=== PATIENT | female | born 1955 | race Caucasian/White ===

== ENCOUNTER → 2018-07-09 10:30 | Outpatient (CLI) | payer MEDICARE, SELFPAY ==
[2018-07-09 11:21] LABS: Alanine Aminotransferase 21 IU/L (9-52); Albumin 4.4 g/dL (3.5-5.0); Albumin Globulin Ratio 1.3 (1.0-2.8); Alkaline Phosphatase 74 U/L (38-126); Aspartate Aminotransferase 19 IU/L (14-36); BUN Creatinine Ratio 27.8 (6-22); Bilirubin Total 0.7 mg/dL (0.2-1.3); Blood Urea Nitrogen 25 mg/dL (7-17); Calcium 9.3 mg/dL (8.4-10.2); Carbon Dioxide 26 mmol/L (22-32); Chloride 102 mmol/L (98-107); Cholesterol 234 mg/dL (140-199); Estimated Glomerular Filt Rate > 60.0 mL/min (>60); Globulin 3.3 g/dL (1.7-4.1); Glucose 111 mg/dL (80-110); HDL Cholesterol 84 mg/dL (40-60); HEMOLYSIS < 15 (0-50); LDL Cholesterol Calculated 135 mg/dL (<100); Potassium 4.4 mmol/L (3.4-5.1); Sodium 138 mmol/L (137-145); Total Protein 7.7 g/dL (6.3-8.2); Triglycerides 76 mg/dL (35-150)
[2018-07-09 11:30] LABS: Creatinine Urine Random 186.1 mg/dL
[2018-07-09 12:32] LABS: Microalbumi Creatinin Ratio Ur 3.7 ug/mg CR (<30); Microalbumin Urine Random 0.7 mg/dL (0-1.6)
== END ==
PROVIDERS: Family Provider Physician Assistant; PCP Physician Assistant; Visit Provider Physician Assistant
DX: E66.01 Morbid (severe) obesity due to excess calories (principal); Z13.220 Encounter for screening for lipoid disorders; Z13.6 Encounter for screening for cardiovascular disorders; I10 Essential (primary) hypertension
CPT/HCPCS: 36415; 80053; 80061; 82043; 82570

== ENCOUNTER → 2019-07-20 08:43 | Outpatient (CLI) | payer MEDICARE, SELFPAY ==
--- NOTE | 2019-07-20 08:44 | DI.US.S_ITS ---
LIMITED ULTRASOUND OF RIGHT BREAST: 07/20/2019 CLINICAL: Right breast palpable lumps. Patient reports prior skin bruising of the superior lateral right breast at the site of palpable concern which has since resolved and can no longer be identified by the patient at the time of this current exam. Patient denies any breast pain, nipple discharge, or history of recent trauma. Comparison is made to exams dated: 07/20/2019 mammogram, 06/09/2012 mammogram, 12/18/2010 mammogram, 12/14/2009 mammogram, and 10/04/2008 mammogram - [facility]. Color flow ultrasound of the right breast 8-12 o'clock region was performed. Madrigal scale images of the real-time examination were reviewed. Targeted ultrasound was performed in the region of the patient's reported focal painful palpable area of concern of the superior lateral right breast. There are areas of irregular indistinct heterogenous hyperechoic tissue within the superior lateral right breast just beneath the skin surface measuring 1.3 x 0.9 x 0.6 cm in the right breast at 12:00 position 3 cm from the nipple and 2.0 x 1.6 x 0.7 cm in the right breast at 9:00 position 3 cm from the nipple. These areas demonstrate minimal internal vascularity on Doppler ultrasound. There is also a 0.5 cm oval circumscribed cystic component with internal echogenic debris within the hyperechoic tissue of the right breast at 9:00 position. Targeted ultrasound was performed in the region of the patient's reported second focal painful palpable area of concern of the inferior lateral right breast near 8:00 position 3 cm from the nipple. No underlying breast mass or abnormality is identified. Targeted ultrasound was performed in the region of the irregular focal asymmetry of the superior medial right breast (1-2 o'clock positions) identified on diagnostic mammography performed immediately prior to this exam on 07/20/19. No underlying correlating breast mass or abnormality is identified. IMPRESSION: PROBABLY BENIGN 1) Areas of irregular indistinct heterogenous hyperechoic tissue within the superior lateral right breast just beneath the skin surface at the sites of patient's palpable concern are most consistent with areas of focal fat edema. The internal complicated cystic component may represent a complicated cyst or resolving hematoma component. A follow-up diagnostic mammogram and targeted ultrasound in 6 months is recommended to demonstrate stability/resolution. The patient is advised to monitor her breasts and to return sooner for re-evaluation should she feel anything grow or change. 2) No ultrasound correlate for the irregular asymmetry of the superior medial right breast identified on diagnostic mammography. This likely represents superimposed fibroglandular tissues and is probable benign. A follow-up diagnostic mammogram in 6 months is recommended to demonstrate stability/resolution. The patient is advised to monitor her breasts and to return sooner for re-evaluation should she feel anything grow or change. This exam was interpreted at Station ID: [id number]. Electronically Signed By: Brent Emanuel M.D. ecl/:07/20/2019 10:48:56 letter sent: Followup Recommended Ultrasound BI-RADS: 3 Probably benign
--- NOTE | 2019-07-20 08:44 | DI.MG.S_ITS ---
BILATERAL DIGITAL DIAGNOSTIC MAMMOGRAM 3D/2D: 07/20/2019 CLINICAL: Right breast palpable lumps. Patient reports prior skin bruising of the superior lateral right breast at the sites of palpable concern which has since resolved and can no longer be identified by the patient at the time of this current exam. Patient denies any breast pain, nipple discharge, or history of recent trauma. Comparison is made to exams dated: 06/09/2012 mammogram, 12/18/2010 mammogram, and 12/14/2009 mammogram - [facility]. There are scattered fibroglandular elements in both breasts. There is a triangular marker overlying the skin of the superior lateral right breast at anterior depth at the site of the patient's reported palpable abnormality. There is an irregular focal asymmetry underlying the triangular marker. Patient also describes a second area of palpable concern in the right breast near 8:00 position 3 cm from the nipple. No mammographic correlate is identified. There is an irregular focal asymmetry of the superior medial right breast at anterior to middle depth. There are multiple oval circumscribed subcentimeter masses within the breasts bilaterally that are of similar morphology and appear stable to prior comparison exams, consistent with benignity and likely representing intramammary cysts and lymph nodes. No other significant masses, calcifications, or other findings are seen in either breast. IMPRESSION: INCOMPLETE: NEEDS ADDITIONAL IMAGING EVALUATION 1) There is a triangular marker overlying the skin of the superior lateral right breast at anterior depth at the site of the patient's reported palpable abnormality. There is an irregular focal asymmetry underlying the triangular marker. Targeted diagnostic ultrasound recommended for further evaluation, which will be performed immediately following this exam. 2) There is an irregular focal asymmetry of the superior medial right breast at anterior to middle depth. Targeted diagnostic ultrasound recommended for further evaluation, which will be performed immediately following this exam. 3) Patient also describes a second area of palpable concern in the right breast near 8:00 position 3 cm from the nipple. No mammographic correlate is identified. Targeted diagnostic ultrasound recommended for further evaluation, which will be performed immediately following this exam. This exam was interpreted at Station ID: [id number]. NOTE: For mammograms, a report in lay terms will be sent to the patient. Approximately 15% of breast malignancies will not be visualized mammographically. In the management of a palpable breast mass, a negative mammogram must not discourage biopsy of a clinically suspicious lesion. Electronically Signed By: Brent Emanuel M.D. ecl/:07/20/2019 10:42:07 ACR BI-RADS Category 0: Incomplete 3340F
== END ==
PROVIDERS: PCP Physician Assistant; Visit Provider Physician Assistant
DX: R92.8 Other abnormal and inconclusive findings on diagnostic imaging of breast (principal); N64.89 Other specified disorders of breast
CPT/HCPCS: 76642; 77066; G0279

== ENCOUNTER → 2020-03-16 10:42 | Outpatient (CLI) | payer MEDICARE, SELFPAY ==
--- NOTE | 2020-03-16 10:44 | DI.RAD.S_ITS ---
PROCEDURE: XR KNEE STANDING BI INDICATIONS: right knee pain with concern for OA TECHNIQUE: Frontal views of the bilateral knees. COMPARISON: None. FINDINGS: Bones: No acute fractures or dislocations. There is moderate osteoarthritis at the medial and lateral compartments on the left, and at the lateral compartment on the right. Moderately severe degeneration is seen at the medial compartment on the right. No suspicious bony lesions. Joint spaces appear normal with weightbearing. Soft tissues: There is a lateral 1.5 cm calcification within the soft tissues superior to the patella lateral border. Position and etiology is uncertain but it is possibly a large intra-articular loose body.. IMPRESSION: Asymmetric right greater than left knee joint osteoarthritis as discussed, possible 1.5 cm intra-articular loose body above the lateral border of the patella on the frontal view. Dictated by: David Ruth M.D. on 03/16/2020 at 12:36 Approved by: David Ruth M.D. on 03/16/2020 at 12:39
== END ==
PROVIDERS: Referring Provider Family Medicine; Visit Provider Family Medicine
DX: M17.0 Bilateral primary osteoarthritis of knee (principal)
CPT/HCPCS: 73565

== ENCOUNTER → 2020-06-27 08:53 | Outpatient (CLI) | payer MEDICARE, SELFPAY ==
[2020-06-27 09:54] LABS: Hematocrit 37.9 % (36-46); Hemoglobin 12.6 g/dL (12.0-16.0); Mean Corpuscular HGB Conc 33.2 % (30-36); Mean Corpuscular Hemoglobin 31.2 PG (26-34); Mean Corpuscular Volume 94.2 fL (80-100); Platelet Count 270 X10^3/uL (150-400); Red Blood Cell Count 4.02 X10^6/uL (4.0-5.2); Red Cell Distribution Width 13.3 % (11.6-14.8); White Blood Cell Count 5.7 X10^3/uL (4.5-11.0)
[2020-06-27 10:04] LABS: Hemoglobin A1C% w Est Avg Glu 5.3 % (4.0-6.0)
[2020-06-27 10:11] LABS: Alanine Aminotransferase 21 IU/L (<35); Albumin 3.9 g/dL (3.5-5.0); Albumin Globulin Ratio 1.2 (1.0-2.8); Alkaline Phosphatase 65 U/L (38-126); Aspartate Aminotransferase 24 IU/L (14-36); BUN Creatinine Ratio 24.2 (6-22); Bilirubin Total 0.6 mg/dL (0.2-1.3); Blood Urea Nitrogen 23 mg/dL (7-17); Calcium 9.2 mg/dL (8.4-10.2); Carbon Dioxide 28 mmol/L (22-32); Chloride 105 mmol/L (98-107); Cholesterol 223 mg/dL (140-199); Estimated Glomerular Filt Rate 58.7 mL/min (>60); Globulin 3.3 g/dL (1.7-4.1); Glucose 84 mg/dL (80-110); HDL Cholesterol 70 mg/dL (40-60); HEMOLYSIS < 15 (0-50); LDL Cholesterol Calculated 137 mg/dL (<100); Potassium 3.7 mmol/L (3.4-5.1); Sodium 136 mmol/L (137-145); Total Protein 7.2 g/dL (6.3-8.2); Triglycerides 82 mg/dL (35-150)
[2020-06-27 10:41] LABS: TSH w/ Reflex to FT4 1.08 uIU/mL (0.47-4.68)
== END ==
PROVIDERS: PCP Registered Nurse Diabetes Educator; Referring Provider Registered Nurse Diabetes Educator; Visit Provider Registered Nurse Diabetes Educator
DX: E66.01 Morbid (severe) obesity due to excess calories (principal); R73.01 Impaired fasting glucose; I10 Essential (primary) hypertension; M17.11 Unilateral primary osteoarthritis, right knee; Z68.42 Body mass index [BMI] 45.0-49.9, adult
CPT/HCPCS: 36415; 80053; 80061; 83036; 84443; 85027

== ENCOUNTER → 2020-07-11 14:39 | Outpatient (CLI) | payer MEDICARE, SELFPAY ==
--- NOTE | 2020-07-11 14:40 | DI.MG.S_ITS ---
BILATERAL DIGITAL DIAGNOSTIC MAMMOGRAM 3D/2D: 07/11/2020 CLINICAL: Late Short term follow up of the right breast, due for bilateral imaging. Comparison is made to exams dated: 07/20/2019 mammogram, 06/09/2012 mammogram, and 07/20/2019 [facility]. There are scattered fibroglandular elements in both breasts. The irregular focal asymmetry in the right breast upper outer aspect anterior depth is no longer seen. The irregular focal asymmetry in the right breast upper inner aspect middle depth is no longer seen. No other significant masses, calcifications, or other findings are seen in either breast. IMPRESSION: INCOMPLETE: NEEDS ADDITIONAL IMAGING EVALUATION An ultrasound is recommended to confirm the no longer seen irregular focal asymmetry in the right breast upper outer aspect anterior depth. This exam was interpreted at Station ID: [id number]. NOTE: For mammograms, a report in lay terms will be sent to the patient. Approximately 15% of breast malignancies will not be visualized mammographically. In the management of a palpable breast mass, a negative mammogram must not discourage biopsy of a clinically suspicious lesion. SUMMARY: Targeted ultrasound is recommended for further evaluation and will be scheduled immediately following this exam. Electronically Signed By: Julian gonsales/bri:07/11/2020 16:39:15 ACR BI-RADS Category 0: Incomplete 3340F
--- NOTE | 2020-07-11 14:40 | DI.US.S_ITS ---
LIMITED ULTRASOUND OF RIGHT BREAST AND AXILLA: 07/11/2020 CLINICAL: Patient returns today to evaluate a focal asymmetry in the right breast. Comparison is made to exams dated: 07/11/2020 mammogram, 07/20/2019 ultrasound, 07/20/2019 mammogram, and 06/09/2012 mammogram - [facility]. Ultrasound of the right breast 9 o'clock, 12 o'clock, and axilla regions was performed. No significant abnormalities were seen sonographically in the right breast. The previously seen irregular indistict heterogeneous hyperechoic tissue in the subcutaneous tissues of the right breast superior lateral quadrant anterior depth are no longer seen, most likely secondary to resolved edema and/or resolved hematomas. IMPRESSION: NEGATIVE There is no sonographic evidence of malignancy. A 1 year screening mammogram is recommended. This exam was interpreted at Station ID: [id number]. Electronically Signed By: Julian gonsales/bri:07/11/2020 16:43:25 letter sent: Normal Exam Ultrasound BI-RADS: 1 Negative
== END ==
PROVIDERS: PCP Registered Nurse Diabetes Educator; Referring Provider Registered Nurse Diabetes Educator; Visit Provider Registered Nurse Diabetes Educator
DX: R92.8 Other abnormal and inconclusive findings on diagnostic imaging of breast (principal); N64.89 Other specified disorders of breast
CPT/HCPCS: 76642; 77066; G0279

== ENCOUNTER → 2021-07-11 09:02 | Outpatient (CLI) | payer MEDICARE, SELFPAY ==
[2021-07-11 10:38] LABS: Hematocrit 37.7 % (36-46); Hemoglobin 12.8 g/dL (12.0-16.0); Mean Corpuscular HGB Conc 34.1 % (30-36); Mean Corpuscular Hemoglobin 31.5 PG (26-34); Mean Corpuscular Volume 92.5 fL (80-100); Platelet Count 306 X10^3/uL (150-400); Red Blood Cell Count 4.07 X10^6/uL (4.0-5.2); Red Cell Distribution Width 12.7 % (11.6-14.8); White Blood Cell Count 5.7 X10^3/uL (4.5-11.0)
[2021-07-11 10:58] LABS: Alanine Aminotransferase 18 IU/L (<35); Albumin 4.1 g/dL (3.5-5.0); Albumin Globulin Ratio 1.4 (1.0-2.8); Alkaline Phosphatase 57 U/L (38-126); Aspartate Aminotransferase 22 IU/L (14-36); BUN Creatinine Ratio 29.9 (6-22); Bilirubin Total 0.6 mg/dL (0.2-1.3); Blood Urea Nitrogen 29 mg/dL (7-17); Calcium 9.6 mg/dL (8.4-10.2); Carbon Dioxide 26 mmol/L (22-32); Chloride 106 mmol/L (98-107); Cholesterol 224 mg/dL (140-199); Estimated Glomerular Filt Rate 57.1 mL/min (>60); Globulin 2.9 g/dL (1.7-4.1); Glucose 97 mg/dL (80-110); HDL Cholesterol 85 mg/dL (40-60); HEMOLYSIS < 15 (0-50); LDL Cholesterol Calculated 123 mg/dL (<100); Potassium 4.1 mmol/L (3.4-5.1); Sodium 137 mmol/L (137-145); Triglycerides 82 mg/dL (35-150)
[2021-07-11 11:30] LABS: TSH w/ Reflex to FT4 0.71 uIU/mL (0.47-4.68)
== END ==
PROVIDERS: PCP Registered Nurse Diabetes Educator; Referring Provider Registered Nurse Diabetes Educator; Visit Provider Registered Nurse Diabetes Educator
DX: R73.01 Impaired fasting glucose (principal); I10 Essential (primary) hypertension; E78.00 Pure hypercholesterolemia, unspecified; R94.4 Abnormal results of kidney function studies
CPT/HCPCS: 36415; 80053; 80061; 84443; 85027

== ENCOUNTER → 2022-06-19 12:28 | Outpatient (CLI) | payer MEDICARE, SELFPAY ==
--- NOTE | 2022-06-19 12:30 | DI.MG.S_ITS ---
BILATERAL DIGITAL SCREENING MAMMOGRAM 3D/2D WITH CAD: 06/19/2022 CLINICAL: Routine screening. Comparison is made to exams dated: 07/11/2020 mammogram, 07/20/2019 mammogram, and 06/09/2012 mammogram - [facility]. There are scattered areas of fibroglandular density in both breasts (category b / 25%-50% glandular tissue). Current study was also evaluated with a Computer Aided Detection (CAD) system. No significant masses, calcifications, or other findings are seen in either breast. There has been no significant interval change. IMPRESSION: NEGATIVE There is no mammographic evidence of malignancy. A 1 year screening mammogram is recommended. Based on the Tyrer Cuzick model (a risk assessment model) the patient's lifetime risk is 5.2% and her 10 year risk is 3.0%. According to the ACR, ACS, and NCCN guidelines, an annual breast MRI exam along with mammogram is recommended if the patient's lifetime risk is 20% or greater. This exam was interpreted at Station ID: [id number]. NOTE: For mammograms, a report in lay terms will be sent to the patient. Approximately 15% of breast malignancies will not be visualized mammographically. In the management of a palpable breast mass, a negative mammogram must not discourage biopsy of a clinically suspicious lesion. Electronically Signed By: García mathew/bri:06/19/2022 13:02:36 letter sent: Normal Exam ACR BI-RADS Category 1: Negative 3341F
== END ==
PROVIDERS: PCP Registered Nurse Diabetes Educator; Referring Provider Registered Nurse Diabetes Educator; Visit Provider Registered Nurse Diabetes Educator
DX: Z12.31 Encounter for screening mammogram for malignant neoplasm of breast (principal); M85.852 Other specified disorders of bone density and structure, left thigh; Z13.820 Encounter for screening for osteoporosis
CPT/HCPCS: 77063; 77067; 77080

== ENCOUNTER → 2022-07-10 09:57 | Outpatient (CLI) | payer MEDICARE, SELFPAY ==
--- NOTE | 2022-07-10 09:59 | DI.US.S_ITS ---
PROCEDURE: US RENAL COMPLETE INDICATIONS: CKD TECHNIQUE: Real-time scanning was performed of the kidneys and bladder, with image documentation. COMPARISON: None. FINDINGS: Exam is limited secondary to patient body habitus and overlying bowel gas. Kidneys: Kidneys are atrophic in size. Right kidney measures 10.7 cm long; left kidney measures 9.7 cm long. Right renal cortical thickness is 1.3 cm; left renal cortical thickness is 1.4 cm. Renal cortical echotexture is normal. No hydronephrosis or nephrolithiasis. There is a poorly visualized focus of decreased echogenicity without increased vascularity left kidney measuring 13 x 9 x 9 mm. Bladder: Pre-void bladder volume is 37 mL. Post-void residual is unchanged mL. Pre-void images demonstrate no intraluminal masses or stones. On pre-void images, neither ureteral jets are noted with color Doppler interrogation. (Of note, ureteral jets may not be detectable in up to 25% of cases due to insufficient differences in specific gravity between ureteral and bladder urine). Miscellaneous: No free pelvic fluid. IMPRESSION: Limited exam as above. Focus of decreased echogenicity poorly visualized within the left kidney. This could represent a small simple cyst. However, it is considered inconclusive on the basis of this exam. Dictated by: Shima Rosado M.D. on 07/10/2022 at 17:02 Approved by: Shima Rosado M.D. on 07/10/2022 at 17:04
== END ==
PROVIDERS: PCP Registered Nurse Diabetes Educator; Referring Provider Registered Nurse Diabetes Educator; Visit Provider Registered Nurse Diabetes Educator
DX: N18.30 Chronic kidney disease, stage 3 unspecified (principal)
CPT/HCPCS: 76770

== ENCOUNTER → 2022-08-01 16:42 | Outpatient (CLI) | payer MEDICARE, SELFPAY ==
--- NOTE | 2022-08-01 16:44 | DI.MRI.S_ITS ---
PROCEDURE: MR ABDOMEN RENAL PROTOCOL COMPARISON: None. INDICATIONS: abnormal us done 07/10/2022 Technique: Magnetic resonance images with and without contrast were obtained of the abdomen using the renal protocol. FINDINGS: Image quality: Good Lower chest: No basal effusions. Lungs are not well evaluated on MRI. Solid organs: Small suspected liver cysts. Cholelithiasis. No splenomegaly. No pathologic dilation of the pancreatic duct or biliary system. No adrenal nodules. No hydronephrosis. No discrete renal mass is identified. There are tiny cortical cysts. On precontrast images (), there is a 1 cm focus of increased T1 signal adjacent to an area of cortical scarring. Vessels and lymph nodes: No pathologic adenopathy by size criteria or abdominal aortic aneurysm. Bowel and peritoneum: No bowel obstruction or pathologic ascites. Body wall: Unremarkable Bones: Degenerative changes without acute or suspicious osseous finding. IMPRESSION: Small renal cortical cysts. No definite enhancing mass. No hydronephrosis. On precontrast T1 images, there is a 1 cm focus of intrinsic T1 signal that may correspond to sonographic abnormality, however not well seen on any other sequence due to its small size and ill-defined signal. This could represent hemorrhagic or proteinaceous cyst. Consider follow-up in 6-12 months to ensure stability. Other findings as above. Dictated by: Mark Gilbert M.D. on 08/02/2022 at 8:33 Approved by: Mark Gilbert M.D. on 08/02/2022 at 8:42
== END ==
PROVIDERS: PCP Registered Nurse Diabetes Educator; Referring Provider Registered Nurse Diabetes Educator; Visit Provider Registered Nurse Diabetes Educator
DX: N18.31 Chronic kidney disease, stage 3a (principal); R93.422 Abnormal radiologic findings on diagnostic imaging of left kidney; N28.1 Cyst of kidney, acquired; K80.20 Calculus of gallbladder without cholecystitis without obstruction
CPT/HCPCS: 74183; A9579

== ENCOUNTER → 2022-12-04 07:33 | Outpatient (CLI) | payer MEDICARE, SELFPAY ==
[2022-12-04 08:13] LABS: Hematocrit 34.9 % (36-46); Mean Corpuscular HGB Conc 34.3 % (30-36); Mean Corpuscular Hemoglobin 32.1 PG (26-34); Mean Corpuscular Volume 93.6 fL (80-100); Platelet Count 278 X10^3/uL (150-400); Red Blood Cell Count 3.73 X10^6/uL (4.0-5.2); Red Cell Distribution Width 12.9 % (11.6-14.8); White Blood Cell Count 5.3 X10^3/uL (4.5-11.0)
[2022-12-04 08:37] LABS: Alanine Aminotransferase 22 IU/L (<35); Albumin 3.8 g/dL (3.5-5.0); Albumin Globulin Ratio 1.3 (1.0-2.8); Alkaline Phosphatase 53 U/L (38-126); Aspartate Aminotransferase 25 IU/L (14-36); BUN Creatinine Ratio 29.3 (6-22); Bilirubin Total 0.5 mg/dL (0.2-1.3); Blood Urea Nitrogen 27 mg/dL (7-17); Calcium 8.6 mg/dL (8.4-10.2); Carbon Dioxide 26 mmol/L (22-32); Chloride 106 mmol/L (98-107); Cholesterol 195 mg/dL (140-199); Estimated Glomerular Filt Rate > 60 mL/min (>60); Globulin 2.9 g/dL (1.7-4.1); Glucose 105 mg/dL (80-110); HDL Cholesterol 63 mg/dL (40-60); HEMOLYSIS < 15 (0-50); LDL Cholesterol Calculated 117 mg/dL (<100); Potassium 3.6 mmol/L (3.4-5.1); Sodium 137 mmol/L (137-145); Total Protein 6.7 g/dL (6.3-8.2); Triglycerides 76 mg/dL (35-150)
[2022-12-04 09:12] LABS: TSH w/ Reflex to FT4 0.22 uIU/mL (0.47-4.68)
[2022-12-04 10:44] LABS: Appearance Urine UA CLEAR; Bilirubin Urine UA NEGATIVE (NEGATIVE); Color Urine UA YELLOW; Glucose Urine UA NEGATIVE (Negative); Ketones Urine UA NEGATIVE (NEGATIVE); Leukocyte Esterase Urine UA NEGATIVE (NEGATIVE); Nitrite Urine UA NEGATIVE (Negative); Occult Blood Urine UA 1+ (Negative); Protein Urine UA NEGATIVE (Negative); Specific Gravity Urine UA 1.025 (1.000-1.035); Urobilinogen Urine UA 0.2 E.U./dL (0.2)
[2022-12-04 10:53] LABS: Bacteria Urine Few (2-10); RBC Urine 1-5/HPF (0-5/HPF); Squamous Epithelial Cell Urine 1-5 /HPF (0-5/HPF); WBC Urine 1-5/HPF (0-5/HPF)
[2022-12-04 10:54] LABS: Culture Indicated Urine Cult Not Indicated
[2022-12-04 11:28] LABS: Creatinine Urine Random 101.3 mg/dL
[2022-12-04 11:39] LABS: Microalbumin Urine Random < 0.6 mg/dL (0-1.6)
[2022-12-04 15:16] LABS: Free T4, Direct Thyroxine 1.31 ng/dL (0.78-2.19)
== END ==
PROVIDERS: PCP Registered Nurse Diabetes Educator; Referring Provider Registered Nurse Diabetes Educator; Visit Provider Registered Nurse Diabetes Educator
DX: E78.00 Pure hypercholesterolemia, unspecified (principal); I10 Essential (primary) hypertension; N18.31 Chronic kidney disease, stage 3a
CPT/HCPCS: 36415; 80053; 80061; 81001; 82043; 82570; 84439; 84443; 85027

== ENCOUNTER → 2023-01-07 07:46 | Outpatient (CLI) | payer MEDICARE, SELFPAY ==
--- NOTE | 2023-01-07 07:47 | DI.MRI.S_ITS ---
PROCEDURE: MR ABDOMEN RENAL PROTOCOL INDICATIONS: Left kidney lesion TECHNIQUE: Coronal HASTE through abdomen and pelvis; axial 2D FLASH in- and are-no-dhmtb (with and without fat saturation), and breath-hold T2 FSE from the hepatic dome to the bottom of the kidneys. Coronal HASTE MR urogram of kidneys and bladder. Dynamic coronal VIBE during IV gadolinium administration; postgadolinium axial VIBE or 2D FLASH with fat saturation from the hepatic dome through the kidneys. COMPARISON: [facility], US, US RENAL COMPLETE, 07/10/2022, 10:31. [facility], MR, MR ABDOMEN RENAL PROTOCOL, 08/01/2022, 16:49. FINDINGS: Image quality: Excellent. Genitourinary system: Similar T1 hyperintense lesion on the lateral margin of the left kidney, with superimposed junctional cortical defect (series 5, image 21 and series 11, image 52). This is not demonstrated significant interval growth from prior. This lesion is not readily visible on the T2 sequences. Additional punctate T1 hyperintense lesion on the superior pole (series 5, image 58). No hydronephrosis. Other solid organs: Gallbladder sludge. No enhancing liver lesions. T2 hyperintense cystic lesion at the dome measuring less than 1 centimeter. Spleen is within normal limits. No pancreatic mass. No adrenal mass. Nodes and vessels: No infrarenal aortic aneurysm. No mesenteric or retroperitoneal lymph nodes. Bowel and peritoneum: Unremarkable. Lung bases: No effusions. Bones and soft tissues: Unremarkable. IMPRESSION: Stable T1 hyperintense lesion on the lateral margin of the left kidney, probably representing a hemorrhagic/proteinaceous cyst, less likely solid mass. Recommend 1 year follow-up with MRI to ensure stability. Dictated by: Rc Gtz M.D. on 01/07/2023 at 9:29 Approved by: Rc Gtz M.D. on 01/07/2023 at 9:35
== END ==
PROVIDERS: PCP Registered Nurse Diabetes Educator; Referring Provider Registered Nurse Diabetes Educator; Visit Provider Registered Nurse Diabetes Educator
DX: N28.9 Disorder of kidney and ureter, unspecified (principal)
CPT/HCPCS: 74183

== ENCOUNTER → 2023-09-05 15:13 | Outpatient (CLI) | payer MEDICARE, SELFPAY ==
--- NOTE | 2023-09-05 15:17 | DI.MG.S_ITS ---
BILATERAL DIGITAL SCREENING MAMMOGRAM 3D/2D WITH CAD: 09/05/2023 CLINICAL: Routine screening. Comparison is made to exams dated: 06/19/2022 mammogram, 07/11/2020 mammogram, and 07/20/2019 mammogram - [facility]. There are scattered areas of fibroglandular density in both breasts (category b / 25%-50% glandular tissue). Current study was also evaluated with a Computer Aided Detection (CAD) system. There is a focal asymmetry in the left breast upper outer quadrant at anterior depth. No other significant masses, calcifications, or other findings are seen in either breast. IMPRESSION: INCOMPLETE: NEEDS ADDITIONAL IMAGING EVALUATION The focal asymmetry in the left breast is indeterminate. A diagnostic mammogram and ultrasound is recommended. Based on the Tyrer Cuzick model (a risk assessment model) the patient's lifetime risk is 4.9% and her 10 year risk is 3.1%. According to the ACR, ACS, and NCCN guidelines, an annual breast MRI exam along with mammogram is recommended if the patient's lifetime risk is 20% or greater. This exam was interpreted at Station ID: [id number]. NOTE: For mammograms, a report in lay terms will be sent to the patient. Approximately 15% of breast malignancies will not be visualized mammographically. In the management of a palpable breast mass, a negative mammogram must not discourage biopsy of a clinically suspicious lesion. Electronically Signed By: Cha Navarrete M.D., PH.D eb/:09/06/2023 14:56:00 letter sent: Additional Imaging Needed ACR BI-RADS Category 0: Incomplete 3340F
[2023-09-05 17:36] LABS: Hematocrit 39.4 % (36-46); Hemoglobin 13.3 g/dL (12.0-16.0); Mean Corpuscular HGB Conc 33.7 % (30-36); Mean Corpuscular Hemoglobin 31.8 PG (26-34); Mean Corpuscular Volume 94.2 fL (80-100); Platelet Count 302 X10^3/uL (150-400); Red Blood Cell Count 4.18 X10^6/uL (4.0-5.2); Red Cell Distribution Width 12.8 % (11.6-14.8); White Blood Cell Count 7.1 X10^3/uL (4.5-11.0)
[2023-09-05 17:57] LABS: Alanine Aminotransferase 24 IU/L (<35); Albumin Globulin Ratio 1.3 (1.0-2.8); Alkaline Phosphatase 61 U/L (38-126); Aspartate Aminotransferase 25 IU/L (14-36); BUN Creatinine Ratio 28.7 (6-22); Bilirubin Total 0.5 mg/dL (0.2-1.3); Blood Urea Nitrogen 27 mg/dL (7-17); Calcium 9.4 mg/dL (8.4-10.2); Carbon Dioxide 25 mmol/L (22-32); Chloride 107 mmol/L (98-107); Cholesterol 200 mg/dL (140-199); Estimated Glomerular Filt Rate > 60 mL/min (>60); Globulin 3.2 g/dL (1.7-4.1); Glucose 99 mg/dL (80-110); HDL Cholesterol 65 mg/dL (40-60); HEMOLYSIS < 15 (0-50); LDL Cholesterol Calculated 115 mg/dL (<100); Potassium 3.7 mmol/L (3.4-5.1); Sodium 139 mmol/L (137-145); Total Protein 7.2 g/dL (6.3-8.2); Triglycerides 98 mg/dL (35-150)
[2023-09-05 18:32] LABS: TSH w/ Reflex to FT4 0.96 uIU/mL (0.47-4.68)
== END ==
PROVIDERS: PCP Registered Nurse Diabetes Educator; Referring Provider Registered Nurse Diabetes Educator; Visit Provider Registered Nurse Diabetes Educator
DX: Z12.31 Encounter for screening mammogram for malignant neoplasm of breast (principal); I12.9 Hypertensive chronic kidney disease with stage 1 through stage 4 chronic kidney disease, or unspecified chronic kidney disease; R92.323 Mammographic fibroglandular density, bilateral breasts; N18.30 Chronic kidney disease, stage 3 unspecified; E78.00 Pure hypercholesterolemia, unspecified; R79.89 Other specified abnormal findings of blood chemistry; Z51.81 Encounter for therapeutic drug level monitoring
CPT/HCPCS: 36415; 77063; 77067; 80053; 80061; 84443; 85027

== ENCOUNTER 2023-09-27 08:17 | Day surgery (SDC) | payer MEDICARE, SELFPAY ==
--- NOTE | 2023-09-27 | PATH_ITS ---
[facility] Accession Number: [id number] No. of containers..01 Tissue . 01 Material submitted: . colon - DESCENDING COLON POLYP . 01 Diagnosis: Colon, descending, polyp biopsy: Benign polypoid colonic mucosa with benign lymphoid aggregate. Negative for dysplasia. TXN 10/02/2023 1140 Local . 01 Electronically signed: . Michelet Ventura MD, Pathologist NPI- [id number] . 01 Gross description: . DESCENDING COLON POLYP: Received in formalin are 2 fragment(s) of deng, soft tissue measuring 0.2 x 0.2 x 0.1 cm to 0.3 x 0.2 x 0.2 cm submitted entirely in 1 cassette(s) /SUELLEN 09/30/2023 1806 Local . 01 Pathologist provided ICD-10: Z12.11 . 01 CPT . 060806 Specimen Comment: A courtesy copy of this report has been sent to [phone] Performed at: 01 [facility] [address] [place] [address], [place], [place] [id number] MD Aaron Baum MD Phone: [phone]
[2023-09-27 09:06] VITALS: BP 123/64; PULSE 65; RESP 16; TEMP 36.5; O2SAT 96
[2023-09-27] MEDS: LACTATED RINGERS 1,000 ML 150 ML IV (09:11)
--- NOTE | 2023-09-27 10:59 | PM.HP.1 ---
History of Present Illness History of Present Illness Date Patient Seen: 09/27/23 Time Patient Seen: 10:59 Chief complaint: Screening Colonoscopy Narrative: Colon cancer screening. Last scope over 10years ago. No symptoms PFSH Medical History (Updated 09/12/23 @ 12:42 by TAO Zarate) Dyslipidemia Osteopenia CKD (chronic kidney disease) stage 3, GFR 30-59 ml/min Elevated LDL cholesterol level Vision disorder Bilateral primary osteoarthritis of knee Recurrent headache Impaired fasting blood sugar Family History Father Stroke Grandfather Cancer Grandmother Cancer Social History Smoking Status: Never smoker second hand exposure: No alcohol intake: current substance use type: does not use Meds Home Medications and Allergies Home Medications Medication Instructions Recorded Confirmed Type pneumoc 13-kaleb conj-dip cr(PF) 0.5 0.5 ml IM ONCE #0.5 mL 03/16/20 09/10/23 Rx mL IM syringe (Prevnar 13 (PF)) hydrochlorothiazide 25 mg tablet 25 mg PO DAILY #90 tabs 09/10/23 09/27/23 Rx lisinopril 10 mg tablet 10 mg PO DAILY #90 tabs 09/10/23 09/27/23 Rx lorazepam 1 mg tablet 1 mg PO ONCE anxiety #1 tab 09/12/23 09/27/23 Rx Allergies Allergy/AdvReac Type Severity Reaction Status Date / Time No Known Drug Allergies Allergy Verified 09/27/23 09:04 Review of Systems Review of Systems ROS: Yes All systems reviewed with the patient and are negative except as otherwise documented Exam Vital Signs (past 8 hours): - 09/27/23 09:06 Temperature 97.7 F Pulse Rate 65 Respiratory Rate 16 Blood Pressure 123/64 Pulse Oximetry 96 Oxygen Delivery Method Room Air Oxygen Delivery Method Room Air Const General: cooperative, healthy appearing and comfortable HENMT Head: normocephalic and atraumatic Ears: hearing grossly normal bilaterally Eyes Periorbital: periorbital findings normal Neck Neck: trachea midline and No JVD Resp Effort & Inspection: normal respiratory effort and able to speak in complete sentences Cardio Rate: regular rate Rhythm: regular rhythm Skin General: elasticity normal and turgor normal Neuro General: patient alert, patient awake and patient oriented x3 Cognition: normal cognition Psych Mental Status: mental status grossly normal Attitude: cooperative Judgment: judgment good Assessment & Plan Assessment & Plan narrative: Colon cancer screening with anesthesia Time Spent With Patient Time with patient: less than 30 minutes
--- NOTE | 2023-09-27 11:24 | PM.OP.COLON ---
Operative Date/Time/Diagnoses Date of procedure: 09/27/23 Time of procedure: 11:24 Pre-op diagnosis: Colon cancer screening Post-op diagnosis: same Procedure & Clinicians Study performed: Colonoscopy with cold forceps polypectomy using anesthesia Same procedure as scheduled: Yes Indications: Colon cancer screening Surgeon: Lani Rao Procedure Notes Procedure in detail: Preop diagnosis: Colon cancer screening Postop diagnosis: Same Operative procedure: Colonoscopy with cold forceps polypectomy using anesthesia Surgeon: Tawana Rao MD Findings: 2 mm sessile polyp in the descending colon Procedure: Patient placed in lateral position. Rectal exam performed showing normal tone no masses. Colonoscope inserted into the rectum and advanced to ileocecal valve with minimal difficulty. Insufflation extraction scope and the above findings. Retroflex was included in the rectum. Then cold Jumbo forceps were used for polypectomy in the descending colon Impression: Normal colonoscopy with the exception of a small sessile polyp in the descending colon 2 mm in size with gross appearance of hyperplastic. Plan: Anticipate recall to be 10 years. Five years if the pathology proves to be an adenomatous polyp Findings: polyp(s) (2 mm sessile polyp descending colon) Specimen(s): other (2 mm sessile polyp descending colon) Complications: none Post-procedure Recommendations: Colonoscopy in 10 years
[2023-09-27 11:29] VITALS: BP 81/47; PULSE 56; RESP 17; TEMP 36.1; O2SAT 99
[2023-09-27 11:34] VITALS: BP 92/53; PULSE 56; RESP 14; O2SAT 99
[2023-09-27 11:38] VITALS: BP 107/61; PULSE 63; RESP 16; O2SAT 100
[2023-09-27 11:43] VITALS: BP 107/61; PULSE 62; RESP 18; O2SAT 100
[2023-09-27 11:48] VITALS: BP 123/69; PULSE 55; RESP 19; TEMP 36.2; O2SAT 100
== END 2023-09-27 11:57 | disposition home or self-care (01) ==
PROVIDERS: PCP Registered Nurse Diabetes Educator; Referring Provider Surgery; Visit Provider Surgery
PROC: 0DJD8ZZ Inspection of Lower Intestinal Tract, Via Natural or Artificial Opening Endoscopic (ICD-10-PCS; CPT 45378; principal; 2023-09-27 09:15)
DX: Z12.11 Encounter for screening for malignant neoplasm of colon (principal); K63.5 Polyp of colon
CPT/HCPCS: 45380; J2704

== ENCOUNTER → 2023-10-03 09:18 | Outpatient (CLI) | payer MEDICARE, SELFPAY ==
--- NOTE | 2023-10-03 09:20 | DI.MG.S_ITS ---
UNILATERAL LEFT DIGITAL DIAGNOSTIC MAMMOGRAM 3D/2D WITH ADDITIONAL VIEWS: 10/03/2023 CLINICAL: Additional evaluation requested from prior study. Comparison is made to exams dated: 06/19/2022 mammogram, 09/05/2023 mammogram, 07/11/2020 mammogram, and 07/20/2019 mammogram - [facility]. There are scattered areas of fibroglandular density in the left breast (category b / 25%-50% glandular tissue). There is a 0.7 cm focal asymmetry in the left breast central to the nipple anterior depth. This is seen in additional views. No other significant masses or calcifications are seen in the breast. IMPRESSION: INCOMPLETE: NEEDS ADDITIONAL IMAGING EVALUATION The 0.7 cm focal asymmetry in the left breast is indeterminate. An ultrasound is recommended. Based on the Tyrer Cuzick model (a risk assessment model) the patient's lifetime risk is 4.9% and her 10 year risk is 3.1%. According to the ACR, ACS, and NCCN guidelines, an annual breast MRI exam along with mammogram is recommended if the patient's lifetime risk is 20% or greater. This exam was interpreted at Station ID: [id number]. NOTE: For mammograms, a report in lay terms will be sent to the patient. Approximately 15% of breast malignancies will not be visualized mammographically. In the management of a palpable breast mass, a negative mammogram must not discourage biopsy of a clinically suspicious lesion. Electronically Signed By: Mark Gilbert M.D. lc/:10/03/2023 10:39:38 ACR BI-RADS Category 0: Incomplete 3340F
--- NOTE | 2023-10-03 09:20 | DI.US.S_ITS ---
PROCEDURE: US BREAST LT LIMITED COMPARISON: None. INDICATIONS: F/u on MM. FINDINGS: IMPRESSION: Dictated by: Mark Gilbert M.D. on 10/03/2023 at 10:39 Approved by: Mark Gilbert M.D. on 10/03/2023 at 10:42
--- NOTE | 2023-10-03 10:19 | DI.US.S_ITS ---
Patient Name: MELISA STEWARD date: 1955 Sex: F Attending Physician: Harley Indications: Date: 10/03/2023 10:42 At the request of: DEVONTE GÓMEZ Procedure: US breast LT limited ULTRASOUND OF LEFT BREAST: 10/03/2023 CLINICAL: Patient returns today to evaluate a focal asymmetry in the left breast. Comparison is made to exams dated: 10/03/2023 mammogram, 09/05/2023 mammogram, and 06/19/2022 mammogram - [facility]. Real-time ultrasound of the left breast was performed. Madrigal scale images of the real-time examination were reviewed. There is a 0.6 cm cyst in the left breast at 12 o'clock anterior depth. IMPRESSION: PROBABLY BENIGN There is a 0.6 cm benign-appearing simple in the left breast at 12 o'clock anterior depth, possibly corresponding to mammogram. The mammogram finding however appeared to be slightly medial to the nipple on today's additional views. A follow-up mammogram and an ultrasound in 6 months is recommended to demonstrate stability. This exam was interpreted at Station ID: [id number]. Electronically Signed By: Mark Gilbert M.D. lc/:10/03/2023 10:42:01 letter sent: Followup Recommended Ultrasound BI-RADS: 3 Probably benign Continued Report - Page 2 of 2 Patient Name: MELISA STEWARD date: 1955 Sex: F Attending Physician: Harley Indications: Date: 10/03/2023 10:42 At the request of: DEVONTE GÓMEZ Procedure: US breast LT limited
== END ==
LOC: MAMMO 09:19
PROVIDERS: PCP Registered Nurse Diabetes Educator; Referring Provider Registered Nurse Diabetes Educator; Visit Provider Registered Nurse Diabetes Educator
DX: R92.8 Other abnormal and inconclusive findings on diagnostic imaging of breast (principal); N60.02 Solitary cyst of left breast; R92.322 Mammographic fibroglandular density, left breast
CPT/HCPCS: 76642; 77065; G0279

== ENCOUNTER → 2024-04-30 09:26 | Outpatient (CLI) | payer MEDICARE, SELFPAY ==
--- NOTE | 2024-04-30 09:27 | DI.US.S_ITS ---
LIMITED ULTRASOUND OF LEFT BREAST AND AXILLA: 04/30/2024 CLINICAL: Patient returns for a 6 month follow up of the left breast. Comparison is made to exams dated: 04/30/2024 mammogram, 10/03/2023 ultrasound, 10/03/2023 mammogram, 09/05/2023 mammogram, 06/19/2022 mammogram, and 07/11/2020 mammogram - [facility]. Color flow and real-time ultrasound of the left breast 11-12 o'clock, and axilla regions were performed. Madrigal scale images of the real-time examination were reviewed. There is a stable benign 0.7 cm x 0.6 cm x 0.4 cm oval simple cyst in the left breast at 11 o'clock anterior depth 4 cm from the nipple. This oval simple cyst is anechoic. Color flow imaging demonstrates that there is no vascularity present. There also is a benign 0.7 cm x 0.5 cm x 0.2 cm oval cyst in the left breast at 12 o'clock middle depth 5 cm from the nipple. This oval cyst is anechoic with internal echoes. This correlates as an incidental finding. Color flow imaging demonstrates that there is no vascularity present. IMPRESSION: BENIGN There is no sonographic evidence of malignancy. The stable 0.7 cm simple cyst in the left breast at 11 o'clock anterior depth is benign. The 0.7 cm cyst in the left breast at 12 o'clock middle depth is benign. Exam findings were conveyed to the patient. A 1 year screening mammogram is recommended. This exam was interpreted at Station ID: [id number]. Electronically Signed By: García Olivier M.D. [facility] [place]/:04/30/2024 11:12:49 letter sent: Normal Exam ACR BI-RADS Category 2: Benign
--- NOTE | 2024-04-30 09:27 | DI.MG.S_ITS ---
UNILATERAL LEFT DIGITAL DIAGNOSTIC MAMMOGRAM 3D/2D SHORT-TERM FOLLOW-UP: 04/30/2024 CLINICAL: Patient returns for a 6 month follow up of the left breast. Comparison is made to exams dated: 10/03/2023 ultrasound, 10/03/2023 mammogram, 09/05/2023 mammogram, and 06/19/2022 mammogram - [facility]. There are scattered areas of fibroglandular density (category b / 25%-50% glandular tissue). There is a stable 0.7 cm oval focal asymmetry with a circumscribed margin in the left breast central to the nipple anterior depth. No other significant masses or calcifications are seen in the breast. IMPRESSION: INCOMPLETE: NEED ADDITIONAL IMAGING EVALUATION The stable 0.7 cm oval focal asymmetry in the left breast resembles a cyst and is indeterminate. A targeted ultrasound is recommended and will immediately follow. Based on the Tyrer Cuzick model (a risk assessment model) the patient's lifetime risk is 4.6% and her 10 year risk is 3.2%. According to the ACR, ACS, and NCCN guidelines, an annual breast MRI exam along with mammogram is recommended if the patient's lifetime risk is 20% or greater. This exam was interpreted at Station ID: [id number]. NOTE: For mammograms, a report in lay terms will be sent to the patient. Approximately 15% of breast malignancies will not be visualized mammographically. In the management of a palpable breast mass, a negative mammogram must not discourage biopsy of a clinically suspicious lesion. Electronically Signed By: García Olivier M.D. slc/:04/30/2024 10:17:40 letter sent: Additional Imaging Needed ACR BI-RADS Category 0: Incomplete: Need Additional Imaging Evaluation
== END ==
PROVIDERS: PCP Registered Nurse Diabetes Educator; Referring Provider Registered Nurse Diabetes Educator; Visit Provider Registered Nurse Diabetes Educator
DX: R92.8 Other abnormal and inconclusive findings on diagnostic imaging of breast (principal); N60.02 Solitary cyst of left breast
CPT/HCPCS: 76642; 77065; G0279

== ENCOUNTER → 2024-05-01 12:37 | Outpatient (CLI) | payer MEDICARE, SELFPAY ==
--- NOTE | 2024-05-01 12:38 | DI.MRI.S_ITS ---
PROCEDURE: MR ABDOMEN RENAL PROTOCOL INDICATIONS: reeval renal lesion TECHNIQUE: Coronal HASTE through abdomen and pelvis; axial 2D FLASH in- and [id number] (with and without fat saturation), and breath-hold T2 FSE from the hepatic dome to the bottom of the kidneys. Coronal HASTE MR urogram of kidneys and bladder. Dynamic coronal VIBE during IV gadolinium administration; postgadolinium axial VIBE or 2D FLASH with fat saturation from the hepatic dome through the kidneys. COMPARISON: [facility], , MR ABDOMEN RENAL PROTOCOL, 01/07/2023, 7:52. [facility], MR, MR ABDOMEN RENAL PROTOCOL, 08/01/2022, 16:49. FINDINGS: Image quality: Diagnostic. Kidneys and Ureters: No hydronephrosis. No solid mass. No complex renal cystic lesion which requires follow up. A previously identified small focus of elevated T1 signal is again seen at the lateral cortex of the left mid kidney. This correlates with a small contour defect with focal cortical thinning previously present, which can be seen in the setting of prior ischemic or infectious injury. No mass lesion or enhancing lesion is found. OTHER: Lung bases: Unremarkable. Liver: No solid mass. Gallbladder: No gallstones or wall thickening. Biliary ducts: No biliary dilation. Pancreas: No ductal dilation. Spleen: Size is within normal limits. Adrenal Glands: No adrenal nodules. Stomach and Bowel: Normal colonic caliber, without significant wall thickening. Peritoneum: No abnormal intraperitoneal fluid. No free air. Ventral Wall: No hernia. Abdominal Nodes: No retroperitoneal or mesenteric adenopathy by size criteria. Vessels: Aorta and inferior vena cava are normal in size. Bones: No aggressive osseous abnormality. IMPRESSION: Benign appearing focus of elevated T1 signal correlated with a small area of focal renal cortical thinning, chronic and benign in appearance. No follow-up recommended. Dictated by: David Ruth M.D. on 05/01/2024 at 14:14 Approved by: David Ruth M.D. on 05/01/2024 at 14:19
== END ==
PROVIDERS: PCP Registered Nurse Diabetes Educator; Referring Provider Registered Nurse Diabetes Educator; Visit Provider Registered Nurse Diabetes Educator
DX: N28.9 Disorder of kidney and ureter, unspecified (principal)
CPT/HCPCS: 74183; A9579

== ENCOUNTER → 2024-06-19 14:00 | Outpatient (CLI) | payer MEDICARE, SELFPAY ==
--- NOTE | 2024-06-19 14:02 | DI.RAD.S_ITS ---
PROCEDURE: XR ANKLE RT MIN 3V INDICATIONS: eval R ankle pain TECHNIQUE: 3 views of the ankle were acquired. COMPARISON: None. FINDINGS: Bones: Plantar enthesopathy. Mild tibiotalar, hindfoot, and midfoot degenerative changes. Small periarticular bone fragments adjacent to the tibiotalar joint. Soft tissues: No suspicious calcifications. IMPRESSION: No acute radiographic abnormality. Mild ankle, hindfoot, and midfoot degenerative changes with small periarticular, likely degenerative bone fragments. Plantar enthesopathy. If there is high concern for further derangement, consider MRI evaluation. Dictated by: Mark Gilbert M.D. on 06/20/2024 at 20:22 Approved by: Mark Gilbert M.D. on 06/20/2024 at 20:24
== END ==
PROVIDERS: PCP Registered Nurse Diabetes Educator; Referring Provider Registered Nurse Diabetes Educator; Visit Provider Registered Nurse Diabetes Educator
DX: M25.571 Pain in right ankle and joints of right foot (principal); M77.51 Other enthesopathy of right foot and ankle; G89.29 Other chronic pain
CPT/HCPCS: 73610

== ENCOUNTER → 2024-07-22 12:06 | Outpatient (CLI) | payer OTHER, SELFPAY ==
--- NOTE | 2024-07-22 12:07 | DI.MRI.S_ITS ---
PROCEDURE: MR ANKLE RT WO CON INDICATIONS: eval R ankle pain TECHNIQUE: Noncontrast sagittal T1 spin echo and T2 fast spin echo with fat saturation, axial proton density fast spin echo and T2 fast spin echo with fat saturation, coronal T1 spin echo and T2 fast spin echo with fat saturation through the ankle/hindfoot. COMPARISON: None. FINDINGS: Image quality: Excellent Tendons: Mild tenosynovitis of the posterior tibialis. The flexor digitorum longus, and the flexor hallucis longus are unremarkable. The extensor tendons are unremarkable. Longitudinal split tear of the peroneal brevis. The peroneal longus is unremarkable. Severe tendinosis of the Achilles tendon, with low grade interstitial tear in the mid segment, and additional high-grade, partial width tear in the mid segment as well. Ligaments: The anterior and posterior tibiofibular ligaments are intact. The anterior talofibular ligament is intact. Mild sprain of the posterior talofibular ligament. Prior sprain of the calcaneofibular ligament. The deep portion of the deltoid ligament is unremarkable. Sinus tarsi: No fibrosis Plantar fascia: Unremarkable Muscles: Normal in signal Bones: There is mild subchondral marrow edema and cystic changes of the posterior aspect of the fibula, posterior aspect of the talus and the lateral aspect of the calcaneus, concerning for lateral ankle impingement. Hindfoot valgus. Mild degenerative changes of the tibiotalar joint with mild subchondral marrow edema at the tibial plafond. No osteochondral lesion of the talus dome. Small ganglion cyst about the medial cuneiform and the navicular articulation, measuring 1.0 cm. Additional mild degenerative change of the midfoot. Trace tibiotalar effusion. Trace posterior subtalar effusion. IMPRESSION: 1. Longitudinal split tear of the peroneal brevis. 2. Severe tendinosis of the Achilles tendon with high-grade, partial width tear in the mid segment. 3. Prior sprain of the lateral ankle ligaments. 4. Findings concerning for lateral ankle impingement syndrome. Hindfoot valgus. 5. Mild degenerative changes of the tibiotalar joint and the midfoot. 6. 1.0 cm ganglion cyst about the medial cuneiform and the navicular articulation. Dictated by: Janie Tovar M.D. on 07/22/2024 at 14:31 Approved by: Janie Tovar M.D. on 07/22/2024 at 14:43
== END ==
PROVIDERS: PCP Registered Nurse Diabetes Educator; Referring Provider Registered Nurse Diabetes Educator; Visit Provider Registered Nurse Diabetes Educator
DX: S86.311A Strain of muscle(s) and tendon(s) of peroneal muscle group at lower leg level, right leg, initial encounter (principal); S86.011A Strain of right Achilles tendon, initial encounter; M21.071 Valgus deformity, not elsewhere classified, right ankle; M67.471 Ganglion, right ankle and foot; M25.571 Pain in right ankle and joints of right foot; G89.29 Other chronic pain
CPT/HCPCS: 73721

== ENCOUNTER → 2024-08-08 09:34 | Outpatient (CLI) | payer OTHER, SELFPAY ==
[2024-08-08 10:30] LABS: Hematocrit 40.8 % (36-46); Hemoglobin 13.8 g/dL (12.0-16.0); Mean Corpuscular HGB Conc 33.8 % (30-36); Mean Corpuscular Hemoglobin 31.9 PG (26-34); Mean Corpuscular Volume 94.3 fL (80-100); Platelet Count 333 X10^3/uL (150-400); Red Blood Cell Count 4.32 X10^6/uL (4.0-5.2); Red Cell Distribution Width 12.8 % (11.6-14.8); White Blood Cell Count 7.2 X10^3/uL (4.5-11.0)
[2024-08-08 11:38] LABS: Alanine Aminotransferase 34 IU/L (<35); Albumin Globulin Ratio 1.3 (1.0-2.8); Alkaline Phosphatase 62 U/L (38-126); Aspartate Aminotransferase 43 IU/L (14-36); BUN Creatinine Ratio 22.1 (6-22); Bilirubin Total 0.6 mg/dL (0.2-1.3); Blood Urea Nitrogen 34 mg/dL (7-17); Calcium 9.2 mg/dL (8.4-10.2); Carbon Dioxide 22 mmol/L (22-32); Chloride 100 mmol/L (98-107); Cholesterol 185 mg/dL (140-199); Estimated Glomerular Filt Rate 36 mL/min (>60); Glucose 116 mg/dL (80-110); HDL Cholesterol 37 mg/dL (40-60); HEMOLYSIS < 15 (0-50); LDL Cholesterol Calculated 119 mg/dL (<100); Potassium 3.9 mmol/L (3.4-5.1); Sodium 136 mmol/L (137-145); Triglycerides 147 mg/dL (35-150)
== END ==
PROVIDERS: PCP Registered Nurse Diabetes Educator; Referring Provider Registered Nurse Diabetes Educator; Visit Provider Registered Nurse Diabetes Educator
DX: I12.9 Hypertensive chronic kidney disease with stage 1 through stage 4 chronic kidney disease, or unspecified chronic kidney disease (principal); N18.30 Chronic kidney disease, stage 3 unspecified; D64.9 Anemia, unspecified; E78.5 Hyperlipidemia, unspecified
CPT/HCPCS: 36415; 80053; 80061; 85027

== ENCOUNTER → 2024-08-10 11:46 | Outpatient (CLI) | payer OTHER, SELFPAY ==
[2024-08-10 13:13] LABS: COVID-19 CEPHEID 4-PLEX PCR Negative (Negative); Influenza A - CEPHEID Flu A NEGATIVE (NEGATIVE); Influenza B - CEPHEID Flu B NEGATIVE (NEGATIVE); Respiratory Syncytial Virus Negative (Negative)
== END ==
PROVIDERS: PCP Registered Nurse Diabetes Educator; Visit Provider Registered Nurse Diabetes Educator
DX: R05.9 Cough, unspecified (principal)
CPT/HCPCS: 0241U

== ENCOUNTER → 2024-08-10 12:12 | Outpatient (CLI) | payer OTHER, SELFPAY ==
--- NOTE | 2024-08-10 12:13 | DI.RAD.S_ITS ---
PROCEDURE: XR CHEST 2V INDICATIONS: eval LLL rales, r/o pneumonia TECHNIQUE: 2 views of the chest were acquired. COMPARISON: None. FINDINGS: Surgical changes and devices: None. Lungs and pleura: Lungs are clear. No pleural effusions or pneumothorax. Mediastinum: Mediastinal contours are normal. Heart size is normal. Bones and chest wall: No suspicious bony abnormalities. Soft tissues appear unremarkable. IMPRESSION: No acute pulmonary process. Dictated by: Shima Rosado M.D. on 08/10/2024 at 12:36 Approved by: Shima Rosado M.D. on 08/10/2024 at 12:36
== END ==
PROVIDERS: PCP Registered Nurse Diabetes Educator; Referring Provider Registered Nurse Diabetes Educator; Visit Provider Registered Nurse Diabetes Educator
DX: R05.9 Cough, unspecified (principal)
CPT/HCPCS: 0241U; 71046

== ENCOUNTER → 2024-09-11 13:58 | Outpatient (CLI) | payer OTHER, SELFPAY ==
[2024-09-11 14:52] LABS: Alanine Aminotransferase 33 IU/L (<35); Albumin 4.1 g/dL (3.5-5.0); Albumin Globulin Ratio 1.5 (1.0-2.8); Alkaline Phosphatase 72 U/L (38-126); Aspartate Aminotransferase 35 IU/L (14-36); BUN Creatinine Ratio 14.9 (6-22); Bilirubin Total 0.7 mg/dL (0.2-1.3); Blood Urea Nitrogen 22 mg/dL (7-17); Calcium 9.8 mg/dL (8.4-10.2); Carbon Dioxide 28 mmol/L (22-32); Chloride 98 mmol/L (98-107); Estimated Glomerular Filt Rate 38 mL/min (>60); Globulin 2.8 g/dL (1.7-4.1); Glucose 106 mg/dL (80-110); HEMOLYSIS < 15 (0-50); Sodium 136 mmol/L (137-145); Total Protein 6.9 g/dL (6.3-8.2)
[2024-09-11 14:57] LABS: Hemoglobin A1C% w Est Avg Glu 4.8 % (4.0-6.0)
== END ==
PROVIDERS: PCP Registered Nurse Diabetes Educator; Referring Provider Registered Nurse Diabetes Educator; Visit Provider Registered Nurse Diabetes Educator
DX: R73.01 Impaired fasting glucose (principal); N18.30 Chronic kidney disease, stage 3 unspecified; R74.8 Abnormal levels of other serum enzymes
CPT/HCPCS: 36415; 80053; 83036

== ENCOUNTER → 2024-10-28 12:18 | Outpatient (CLI) | payer OTHER, SELFPAY ==
--- NOTE | 2024-10-28 12:20 | DI.ECHO.S_ITS ---
[facility] : : [id number] : [place] : : [id number] : : Phone: [phone] Echocardiogram Report + + :Name: MELISA STEWARD Study Date: 10/28/2024 Height: 63 in : :[facility] ReadingLocation: Weight: 190 lb : : Gender: Female BSA: 1.9 m2 : :: 1955 Age: 69 yrs BP: 142/81 mmHg: :Reason For Study: MURMUR : :Ordering Physician: RICO, : :DEVONTE Performed By: Ubaldo Hale : :Referring: DEVONTE GÓMEZ : + + Interpretation Summary The ejection fraction is estimated to be 60-65%. Diastolic function could not be accurately assessed due to contradictory data. The right ventricle is normal in size and function. There is mild tricuspid regurgitation. The right ventricular systolic pressure is estimated to be at least 42 mmHg based on an estimated right atrial pressure of 3 mm Hg. Procedure: A two-dimensional transthoracic echocardiogram with color flow and Doppler was performed. The study quality was technically good. There is no prior echocardiogram noted for this patient. The patient was in normal sinus rhythm during the exam. Left Ventricle: The left ventricle is normal in size. There is normal left ventricular wall thickness. There is no ventricular septal defect visualized. The ejection fraction is estimated to be 60-65%. Diastolic function could not be accurately assessed due to contradictory data. Right Ventricle: The right ventricle is normal in size and function. Atria: The left atrial size is normal. Right atrial size is normal. There is no Doppler evidence for an interatrial shunt. Mitral Valve: The mitral valve leaflets appear normal. There is no evidence of stenosis, fluttering, or prolapse. There is trace mitral regurgitation. Aortic Valve: The aortic valve is trileaflet. The aortic valve opens well. There is no aortic valve stenosis. No aortic regurgitation is present. Tricuspid Valve: The tricuspid valve leaflets are thin and pliable. There is mild tricuspid regurgitation. The right ventricular systolic pressure is estimated to be at least 42 mmHg based on an estimated right atrial pressure of 3 mm Hg. Pulmonic Valve: The pulmonic valve leaflets are thin and pliable; valve motion is normal. There is no pulmonic valvular regurgitation. Great Vessels: The aortic root is normal size. The dimensions of the ascending aorta are normal. The pulmonary artery is normal size. The IVC is of normal diameter and collapses greater than 50% with a sniff. This suggests a low right atrial pressure of 3 mm Hg. Pericardium/ Pleura There is no pericardial effusion. There is no pleural effusion. MMode/2D Measurements & Calculations LVIDd: 4.4 cm LVOT diam: 2.0 cm LVIDs: 3.1 cm Ao root diam: 3.4 cm FS: 31.1 % asc Aorta Diam: 3.4 cm EPSS: 0.43 cm IVSd: 1.0 cm LVPWd: 1.0 cm LV fitzgerald. diameter/BSA (cm/m^2): 2.3 LV sys. diameter/BSA (cm/m^2): 1.6 LA A2 area: 18.3 cm2 RA long axis: 5.5 cm LA A4 area: 21.7 cm2 RA area: 15.4 cm2 LA length (vol): 6.7 cm RA vol: 36.6 ml LA vol: 50.4 ml RA : 19.3 ml/m2 LA vol index: 26.6 ml/m2 IVC diam: 1.8 cm RVD1 (basal): 3.7 cm RVD2 (mid): 2.6 cm TAPSE: 2.9 cm Doppler Measurements & Calculations Ao V2 max: 143.6 cm/sec LVOT Max Zacarias: 131.0 cm/sec Ao V2 mean: 103.5 cm/sec LV V1 max P.9 mmHg Ao max P.2 mmHg LV V1 VTI: 30.0 cm Ao mean P.7 mmHg JENNIFER(I,D): 2.6 cm2 Ao V2 VTI: 36.2 cm JENNIFER(V,D): 2.9 cm2 sev ratio: 0.83 JENNIFER indexed to BSA (cm^2/m^2): 1.4 MV E max zacarias: 87.9 cm/sec TR max zacarias: 312.0 cm/sec MV A max zacarias: 95.2 cm/sec TR max P.9 mmHg MV E/A: 0.92 PA V2 max: 121.4 cm/sec Med Peak E' Zacarias: 6.3 cm/sec PA V2 mean: 82.5 cm/sec E/E' med: 13.9 PA mean P.1 mmHg Lat Peak E' Zacarias: 8.2 cm/sec PA pr(Accel): 17.3 mmHg E/E' lat: 10.7 E/e' average: 12.3 MV dec time: 0.18 sec SVLVOT): 94.8 ml Reading Physician:02:59 PM
--- NOTE | 2024-10-28 12:20 | DI.MG.S_ITS ---
MM screening mammo BI: 10/28/2024. BI-RADS: 1 CLINICAL: 69-year old female for bilateral screening mammogram. Tyrer-Cuzick lifetime risk of 5.8%. No personal or first-degree family history of breast cancer. Current reported family history of breast cancer: paternal grandmother. PRIOR EXAMS 04/30/2024, 10/03/2023, 09/05/2023, 06/19/2022, 07/11/2020, 07/20/2019. MAMMOGRAPHY TECHNIQUE: 2D and 3D (tomosynthesis) digital mammographic views obtained, with additional images as needed for full coverage. Current study was also evaluated with a Computer Aided Detection (CAD) system. DENSITY B. There are scattered areas of fibroglandular density. MAMMOGRAPHY FINDINGS Bilateral: No suspicious mass, asymmetry, microcalcification, or other abnormality seen. No significant change from comparison. IMPRESSION: * No evidence of malignancy. RECOMMENDATIONS Bilateral * Annual screening mammography. OVERALL ASSESSMENT CATEGORY BI-RADS-1: Negative. The [employer] recommends annual screening mammography beginning at age 40 for women with average risk of breast cancer. ELECTRONICALLY SIGNED: Julian North M.D. on 10/28/2024 at 02:44:21 PM PT Interpreting Station ID: [id number]
[2024-10-28 14:11] LABS: Blood Urea Nitrogen 20 mg/dL (7-17); Calcium 9.5 mg/dL (8.4-10.2); Carbon Dioxide 23 mmol/L (22-32); Chloride 107 mmol/L (98-107); Estimated Glomerular Filt Rate > 60 mL/min (>60); Glucose 94 mg/dL (70-99); HEMOLYSIS < 15 (0-50); Potassium 4.5 mmol/L (3.4-5.1); Sodium 140 mmol/L (137-145)
== END ==
PROVIDERS: PCP Registered Nurse Diabetes Educator; Referring Provider Registered Nurse Diabetes Educator; Visit Provider Registered Nurse Diabetes Educator
DX: Z12.31 Encounter for screening mammogram for malignant neoplasm of breast (principal); Z80.3 Family history of malignant neoplasm of breast; I07.1 Rheumatic tricuspid insufficiency; R01.1 Cardiac murmur, unspecified; N18.30 Chronic kidney disease, stage 3 unspecified
CPT/HCPCS: 36415; 77063; 77067; 80048; 93306

== ENCOUNTER → 2025-04-13 08:32 | Outpatient (CLI) | payer OTHER, SELFPAY ==
[2025-04-13 09:51] LABS: Hematocrit 38.9 % (36-46); Hemoglobin 13.1 g/dL (12.0-16.0); Mean Corpuscular HGB Conc 33.7 % (30-36); Mean Corpuscular Hemoglobin 31.6 PG (26-34); Mean Corpuscular Volume 93.7 fL (80-100); Platelet Count 252 X10^3/uL (150-400)
[2025-04-13 10:04] LABS: Hemoglobin A1C% w Est Avg Glu 5.1 % (4.0-6.0)
[2025-04-13 10:19] LABS: Cholesterol 199 mg/dL (140-199); HDL Cholesterol 83 mg/dL (40-60); Triglycerides 76 mg/dL (35-150)
[2025-04-13 10:47] LABS: TSH w/ Reflex to FT4 0.25 uIU/mL (0.47-4.68)
[2025-04-13 11:28] LABS: Microalbumi Creatinin Ratio Ur 12.0 ug/mg CR (<30)
[2025-04-13 11:46] LABS: Free T4, Direct Thyroxine 1.14 ng/dL (0.78-2.19)
== END ==
PROVIDERS: PCP Registered Nurse Diabetes Educator; Referring Provider Registered Nurse Diabetes Educator; Visit Provider Registered Nurse Diabetes Educator
DX: R73.01 Impaired fasting glucose (principal); I10 Essential (primary) hypertension; Z01.89 Encounter for other specified special examinations; E66.01 Morbid (severe) obesity due to excess calories; Z68.42 Body mass index [BMI] 45.0-49.9, adult; N18.9 Chronic kidney disease, unspecified; M85.80 Other specified disorders of bone density and structure, unspecified site; E78.00 Pure hypercholesterolemia, unspecified
CPT/HCPCS: 36415; 80061; 82043; 82570; 83036; 84439; 84443; 85027